=== PATIENT | female | born 1975 | race Caucasian/White ===

== ENCOUNTER 2020-11-09 11:09 | Outpatient (REF) | payer BC, SELFPAY ==
[2020-11-09 13:51] LABS: Glucose Urine UA NEG (NEG); Leukocyte Esterase Urine NEG (NEG); Nitrite Urine NEG (NEG); PH 6.5 (5.0-8.0); Urine Blood NEG (NEG); Urine Ketones NEG (NEG); Urine Protein NEG (NEG-TRACE)
[2020-11-09 13:53] LABS: Appearance Urine CLEAR; Color Urine YELLOW
[2020-11-09 14:29] LABS: Anion Gap 11 (12-20); Blood Urea Nitrogen 16 mg/dL (9-16); Calcium 9.3 mg/dL (8.4-10.2); Carbon Dioxide 29 mmol/L (22-29); Chloride 103 mmol/L (96-108); Creatinine Urine 25.32 mg/dL; Estimated Glomerular Filt Rate > 60; Microalbumin Urine < 5.0 mg/L; Potassium 3.9 mmol/L (3.3-5.1); Sodium 139 mmol/L (135-145)
== END 2020-11-09 11:10 | disposition home or self-care (01) ==
LOC: HO.10HDL 11:09
PROVIDERS: Visit Provider Internal Medicine Hypertension Specialist
DX: Q61.5 Medullary cystic kidney (principal); I10 Essential (primary) hypertension
CPT/HCPCS: 36415; 80051; 81003; 82043; 82310; 82565; 84520

== ENCOUNTER 2022-01-10 07:09 | Outpatient (REF) | payer BC, SELFPAY ==
[2022-01-10 11:22] LABS: Appearance Urine CLEAR; Color Urine YELLOW; Glucose Urine UA NEG (NEG); Leukocyte Esterase Urine NEG (NEG); Nitrite Urine NEG (NEG); Specific Gravity - Urine 1.015 (1.005-1.025); Urine Blood NEG (NEG); Urine Ketones NEG (NEG); Urine Protein NEG (NEG-TRACE)
[2022-01-10 11:38] LABS: Anion Gap 12 (12-20); Blood Urea Nitrogen 16 mg/dL (9-16); Carbon Dioxide 25 mmol/L (22-29); Chloride 105 mmol/L (96-108); Estimated Glomerular Filt Rate > 60; Potassium 4.4 mmol/L (3.3-5.1); Sodium 138 mmol/L (135-145)
[2022-01-10 11:58] LABS: Creatinine Urine 110.86 mg/dL; Microalbum/Creatinine Ratio Ur 11.7 ug/mg cr
== END 2022-01-10 07:10 | disposition home or self-care (01) ==
LOC: HO.WFDLDS 07:09
PROVIDERS: Visit Provider Internal Medicine Hypertension Specialist
DX: N17.9 Acute kidney failure, unspecified (principal); E11.22 Type 2 diabetes mellitus with diabetic chronic kidney disease; N18.9 Chronic kidney disease, unspecified; D63.1 Anemia in chronic kidney disease; N17.8 Other acute kidney failure
CPT/HCPCS: 36415; 80051; 81003; 82043; 82310; 82565; 84520